=== PATIENT | female | born 1950 | race Hispanic/Latino ===

== ENCOUNTER 2025-10-19 06:06 | Day surgery (SDC) | payer MEDICARE ==
[~2025-10-19] VITALS: Ht 165.1 cm; Wt 81.6 kg
[2025-10-19] VITALS (10 sets, daily range): BP systolic 130–162; BP diastolic 30–53; PULSE 59–61; RESP 14–17; TEMP 97.1–97.7
[~2025-10-19 06:06] MED LIST: AMIO200T73 PO; APIX2.5T PO; ATOR10 PO; CHOL100046 PO; DAPA10TA PO; FURO20TA4 PO; LACT-441 PO; LISI20TA24 PO; PANT20TA18 PO; RIFA550T PO; SPIR25TA PO
[2025-10-19] MEDS ORDERED: DULA1.5P SQ (07:10)
[2025-10-19] MEDS ORDERED: PANT40TA54 PO (07:10)
[2025-10-19] MEDS ORDERED: LOSA25TA41 PO (07:10)
[2025-10-19] MEDS ORDERED: FURO20TA4 PO (07:10)
[2025-10-19] MEDS ORDERED: METO2.5T2 PO (07:10)
[2025-10-19] MEDS: 0.9%NACL 1000ML 1,000 ML IV ONE (07:11)
--- NOTE | 2025-10-19 09:50 | NUR ---
BOTH PT AND DAUGHTER GIVEN VERBAL AND WRITTEN DISCHARGE INSTRUCTIONS. IV REMOVED SITE ASYMPTOMATIC PT TAKEN OUT VIA WHEELCHAIR DAUGHTER DRIVING
== END 2025-10-19 09:57 | disposition home or self-care (01) ==
LOC: DAH 06:06 → ENDO 06:06
PROVIDERS: ATTEND Internal Medicine Gastroenterology
DX: D50.9 Iron deficiency anemia, unspecified (principal); K31.819 Angiodysplasia of stomach and duodenum without bleeding; K76.6 Portal hypertension; K31.89 Other diseases of stomach and duodenum; I85.10 Secondary esophageal varices without bleeding; I11.0 Hypertensive heart disease with heart failure; I50.9 Heart failure, unspecified; I25.2 Old myocardial infarction; M19.90 Unspecified osteoarthritis, unspecified site; E11.9 Type 2 diabetes mellitus without complications; K55.20 Angiodysplasia of colon without hemorrhage; K29.30 Chronic superficial gastritis without bleeding; K74.60 Unspecified cirrhosis of liver; R18.8 Other ascites; K72.90 Hepatic failure, unspecified without coma; D12.3 Benign neoplasm of transverse colon; K57.30 Diverticulosis of large intestine without perforation or abscess without bleeding; Z98.890 Other specified postprocedural states; Z88.1 Allergy status to other antibiotic agents; Z79.01 Long term (current) use of anticoagulants; Z90.49 Acquired absence of other specified parts of digestive tract; Z79.899 Other long term (current) drug therapy
CPT/HCPCS: 43255; 82948 ×2; J7030 ×2; J2704; A4620; C1726; A4215 ×2; A4223; A4657; A7002; A4222; A4221; A4663; A4606; J3490